=== PATIENT | male | born 1955 | race Caucasian/White ===

== ENCOUNTER 2024-05-06 07:13 | Day surgery (SDC) | payer BC ==
[2024-05-05 10:15] LABS: Absolute Basophils 0.1 K/uL (0-0.5); Absolute Eosinophils 0.2 K/uL (0-0.5); Absolute Lymphocytes (CBC) 1.6 K/uL (0.7-4.9); Absolute Neutrophil 5.8 K/uL (1.8-8.0); Basophils % 0.7 % (0-1.3); Eosinophils % 2.4 % (0-4.4); Hematocrit 44.1 % (39.6-49.0); Lymphocytes % 18.5 % (15.3-44.8); MCH 32.6 pg (27.0-35.0); MCV 95.6 fL (80-100); Monocytes % 11.4 % (3.3-12.3); Nucleated Red Blood Cells % 0.1 % (0-0); Platelets 204 thou/uL (152-406); RBC Red Blood Cell Count 4.61 M/uL (4.33-5.43); Red Cell Distribution Width 13.4 % (12.1-15.2)
[2024-05-05 10:26] LABS: PT Prothrombin Time 10.8 SECONDS (10-13.0); PTT, Activated Partial Thromb 31.7 SECONDS (27.2-37.4); Protime INR 0.94
[2024-05-05 10:35] LABS: Anion Gap 11.3 mEq/L (5.0-15.0); Potassium 4.3 mEq/L (3.5-5.1)
--- NOTE | 2024-05-05 12:32 | RAD REPORT ---
EXAMINATION: TWO VIEW CHEST XR CLINICAL INDICATION: Male, 69 years old. 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 Hypertension TECHNIQUE: 2 view radiographs of the chest were performed. COMPARISON: No prior exam. FINDINGS: The lungs are well inflated and clear. No pneumothorax or sizable effusion. The heart is normal in si ze. Mediastinal contours are unremarkable. IMPRESSION: No acute or significant abnormalities.
[2024-05-06] MEDS ORDERED: LIDOCAINE 1% 20 ML MDV ONE (07:20)
[2024-05-06] MEDS ORDERED: NITROGLYCERIN/D5W 50 MG/250 ML BTL IV ONE (07:20)
[2024-05-06] MEDS ORDERED: HEPA 1000U/500MLS 2,000 UNIT/1,000 ML BAG IV ONE (07:20)
[2024-05-06] MEDS ORDERED: NA CHLORIDE 0.9% 500 ML ONE (07:21)
[2024-05-06] MEDS ORDERED: ATROPINE SULF 1 MG/10 ML SYR IV ONE (07:43)
[2024-05-06] MEDS ORDERED: MIDAZOLAM HCL 2 MG/2 ML INJ ONE (07:43)
[2024-05-06] MEDS ORDERED: FENTANYL CITR 100 MCG/2 ML ONE (07:44)
[2024-05-06] MEDS ORDERED: CLOPIDOGREL 75 MG TABLET ONE (07:44)
[2024-05-06] MEDS ORDERED: HEPARIN 5000 UNIT/ML 1 ML VIAL ONE (07:44)
[2024-05-06] MEDS ORDERED: ASPIRIN 325 MG TAB ONE (07:44)
[2024-05-06] MEDS ORDERED: TICAGRELOR 90 MG TABLET PO ONE ×2 (07:44→09:09)
[2024-05-06] MEDS ORDERED: HEPARIN 10,000 UNIT/10 ML VIAL IV ONE (08:39)
[2024-05-06 10:24] VITALS: O2SAT 100
[2024-05-06 13:06] VITALS: BP 129/67
--- NOTE | 2024-05-06 20:59 | OP ---
Date of Procedure: 05/06/2024 Surgeon: Nico Stevenson Procedures Performed: 1. Peripheral angiogram. 2. NUCLEAR PLANT TECHNICAL ADVISOR of the right SFA with drug-coated balloon. Indication For Procedure: Claudications, abnormal PAULA and CTA. Complications: None. Estimated Blood Loss: Less than 50 cc. Access: Left common femoral artery, closed by Mynx. Description Of Procedure: After risks, and benefits, and alternatives were explained to the patient, patient agreed to proceed with procedure and signed informed consent. The patient was brought back to the chemical processing laborer, prepped and draped in sterile fashion. Time-out was performed. Sedation was admini stered. Next, in the left common femoral artery, under ultrasound-guided micropuncture technique, ac cess was obtained. A 5-Fijian sheath was introduced without any difficulty. The Omni Flush catheter was advanced to the lower abdominal aorta for lower abdominal aortogram, that was later exchanged fo r an HARPAL catheter for the right lower extremity angiogram. This was later exchanged for a 6-Fijian D estination sheath. Heparin was administered. ACT was therapeutic. The wire was passed across the l esion. We pre-dilated the right SFA disease with the regular balloon 4.0 mm in size and that was lat er followed by a drug-coated balloon 6 mm for 2 minutes. Repeat angiogram shows MENDY-3 flow. Wire w as removed. Destination sheath was pulled back to the left SOLDERING MACHINE OPERATOR HELPER and peripheral angiogram of the left leg was done using the Destination sheath. At the end of procedure, Destination sheath was removed a nd access was closed with a Mynx. The patient was moved back to Recovery in stable condition. Findings: 1. Lower abdominal aorta is patent. 2. Right common iliac artery/internal iliac artery; diffuse 40% calcified disease. 3. Right SFA; proximal mild luminal irregularities with mid 70% disease, status post NUCLEAR PLANT TECHNICAL ADVISOR. 4. Right anterior tibial occluded. 5. Right peroneal artery with a proximal 60% to 70% disease, then mild luminal irregularities. 6. Right posterior tibial artery; mild luminal irregularities. 7. Two vessel runoff on the right side. 8. Left common iliac artery/internal iliac artery; mild luminal irregularities. 9. Left SFA; proximal calcified 50% disease, then mid 70% to 80% disease, heavy calcified. 10. Left anterior tibial; diffuse, severe disease. 11. Left peroneal/posterior tibial; diffuse mild luminal irregularities. Assessment And Plan: 1. Significant right SFA disease, status post NUCLEAR PLANT TECHNICAL ADVISOR with the drug-coated balloon. 2. Significant left SFA disease, staged NUCLEAR PLANT TECHNICAL ADVISOR to be done in 4-6 weeks. Plan will be: 1. Aspirin 81 mg daily for life. 2. Plavix 75 mg daily for 12 months. BRENNAN/DEA Voice ID: [id number] Report ID: [id number]
--- NOTE | 2024-05-07 12:40 | EKG ---
Test Date: 2024-05-05 Test Time: 08:32:00 Pharmacology Professor: ANTOINETTE MEASUREMENT RESULTS: Intervals: Rate: 73 VA: QRSD: 74 QT: 404 QTc: 445 [place]: P: 69 VA: QRS: 80 T: 173 INTERPRETIVE STATEMENTS: Atrial flutter with 3:1 AV conduction Septal infarct, age undetermined ST & T wave abnormality, consider inferior ischemia Abnormal ECG No previous ECG available for comparison Electronically Signed On 05-07-24 12:29:20 CDT by Nico Stevenson
== END 2024-05-06 13:10 | disposition home or self-care (01) ==
LOC: CCL 07:13
PROVIDERS: ATTEND Internal Medicine Interventional Cardiology
PROC: B41D1ZZ Fluoroscopy of Aorta and Bilateral Lower Extremity Arteries using Low Osmolar Contrast (ICD-10-PCS; principal; 2024-05-06)
PROC: 047K3Z1 Dilation of Right Femoral Artery using Drug-Coated Balloon, Percutaneous Approach (ICD-10-PCS; 2024-05-06)
DX: I70.223 Atherosclerosis of native arteries of extremities with rest pain, bilateral legs (principal); I12.9 Hypertensive chronic kidney disease with stage 1 through stage 4 chronic kidney disease, or unspecified chronic kidney disease; N18.30 Chronic kidney disease, stage 3 unspecified; E78.2 Mixed hyperlipidemia; F17.210 Nicotine dependence, cigarettes, uncomplicated; Z79.82 Long term (current) use of aspirin; Z79.899 Other long term (current) drug therapy; Z88.5 Allergy status to narcotic agent; Z88.8 Allergy status to other drugs, medicaments and biological substances; Z82.49 Family history of ischemic heart disease and other diseases of the circulatory system
CPT/HCPCS: 36415; 37224; 71046; 75630; 75710; 76937; 80048; 85025; 85347; 85610; 85730; 93005; 99152; C1760; C1769; C1893; J0461; J1644; J2003; J2250; J3010; J7040

== ENCOUNTER 2024-06-17 07:36 | Day surgery (SDC) | payer BC ==
[2024-06-05 13:11] LABS: Absolute Basophils 0.1 K/uL (0-0.5); Absolute Eosinophils 0.6 K/uL (0-0.5); Absolute Lymphocytes (CBC) 2.4 K/uL (0.7-4.9); Absolute Neutrophil 4.7 K/uL (1.8-8.0); Eosinophils % 6.6 % (0-4.4); Hematocrit 41.9 % (39.6-49.0); Hemoglobin 14.3 g/dL (13.6-17.9); MCH 32.7 pg (27.0-35.0); MCHC 34.1 g/dL (32.0-36.0); MCV 95.9 fL (80-100); MPV 8.3 fL (7.6-11.3); Monocytes % 11.4 % (3.3-12.3); Platelets 227 thou/uL (152-406); RBC Red Blood Cell Count 4.37 M/uL (4.33-5.43); Red Cell Distribution Width 13.1 % (12.1-15.2)
[2024-06-05 13:18] LABS: PT Prothrombin Time 10.7 SECONDS (10-13.0); PTT, Activated Partial Thromb 32.8 SECONDS (27.2-37.4); Protime INR 0.94
[2024-06-05 13:52] LABS: Anion Gap 8.3 mEq/L (5.0-15.0); Potassium 4.3 mEq/L (3.5-5.1)
--- NOTE | 2024-06-11 13:01 | EKG ---
Test Date: 2024-06-05 Test Time: 12:46:29 Mechanical Design Drafter: NÉSTOR MEASUREMENT RESULTS: Intervals: Rate: 62 NM: 168 QRSD: 80 QT: 376 QTc: 381 [place]: P: 77 NM: 168 QRS: 78 T: 67 INTERPRETIVE STATEMENTS: Normal sinus rhythm Normal ECG Compared to ECG 05/05/2024 08:32:00 Atrial flutter no longer present Myocardial infarct finding no longer present ST (T wave) deviation no longer present Possible ischemia no longer present Electronically Signed On 06-11-24 12:44:48 CDT by Nico Stevenson
[2024-06-17] MEDS ORDERED: NA CHLORIDE 0.9% 500 ML ONE (07:43)
[2024-06-17] MEDS ORDERED: HEPA 1000U/500MLS 2,000 UNIT/1,000 ML BAG IV ONE (08:26)
[2024-06-17] MEDS ORDERED: LIDOCAINE 1% 20 ML MDV ONE (08:27)
[2024-06-17] MEDS ORDERED: MIDAZOLAM HCL 2 MG/2 ML INJ ONE (08:41)
[2024-06-17] MEDS ORDERED: ATROPINE SULF 1 MG/10 ML SYR IV ONE (08:42)
[2024-06-17] MEDS ORDERED: FENTANYL CITR 100 MCG/2 ML ONE (08:42)
[2024-06-17 13:14] VITALS: BP 136/60; O2SAT 99
--- NOTE | 2024-06-17 23:08 | OP ---
Date of Procedure: 06/17/2024 Surgeon: Nico Stevenson Procedure Performed: Percutaneous transluminal angioplasty of left superficial femoral artery stenos is. Indication For Procedure: Claudications, abnormal PAULA with abnormal peripheral angiogram. Complications: None. Access: Right common femoral artery, closed by Mynx. Estimated Blood Loss: Less than 50 cc. Sedation Time: 30 minutes with 2 of Versed and 50 of fentanyl. Description Of Procedure: After risks, benefits, and alternatives were explained to the patient, pat ient agreed to proceed with procedure and signed informed consent. The patient was brought back to [facility] medical lab technician, prepped and draped in sterile fashion. Time-out was performed. Sedation was administer ed. Next right common femoral artery access was obtained using ultrasound-guided micropuncture techn ique. We advanced the Omni Flush catheters. We crossed into the left SFA with Glidewire Advantage t hat was later exchanged with the 6-Belarusian destination sheath. We predilated the lesions with a regul ar 4.0 mm balloon that was followed by drug-coated balloon 6 mm in size for 2 minutes. Repeat angiog josep shows MENDY-3 flow, so at the end of procedure, wire was removed. Sheath was removed and Mynx was applied. Hemostasis was achieved and patient was moved back to recovery in stable condition. Findings: 1. Left common femoral artery patent. 2. Left SFA artery with proximal 30% to 40% disease followed by a mid 80% disease, status post ART EDUCATION PROFESSOR wi th drug-coated balloon. Stenosis is down to less than 10% with very minimal dissections. 3. Left posterior tibial and peroneal arteries are patent. 4. Left anterior tibial with proximal diffuse 80% disease and mild luminal irregularities. 5. Three vessel runoff in the left leg. Assessment And Plan: Significant left superficial femoral artery disease, status post percutaneous t ransluminal angioplasty with a drug-coated balloon. Plan is to: 1. Continue aspirin 81 mg daily for life. 2. Continue Plavix 75 mg daily for 12 months. AMIN/MODL Voice ID: [id number] Report ID: [id number]
== END 2024-06-17 13:34 | disposition home or self-care (01) ==
LOC: PRE 07:36 → CCL 13:34
PROVIDERS: ADMIT Internal Medicine; ATTEND Internal Medicine Interventional Cardiology
PROC: 047L3Z1 Dilation of Left Femoral Artery using Drug-Coated Balloon, Percutaneous Approach (ICD-10-PCS; principal; 2024-06-17)
DX: I70.223 Atherosclerosis of native arteries of extremities with rest pain, bilateral legs (principal); I12.9 Hypertensive chronic kidney disease with stage 1 through stage 4 chronic kidney disease, or unspecified chronic kidney disease; N18.30 Chronic kidney disease, stage 3 unspecified; E78.2 Mixed hyperlipidemia; F17.210 Nicotine dependence, cigarettes, uncomplicated; Z79.02 Long term (current) use of antithrombotics/antiplatelets; Z79.82 Long term (current) use of aspirin; Z79.899 Other long term (current) drug therapy; Z88.5 Allergy status to narcotic agent; Z82.49 Family history of ischemic heart disease and other diseases of the circulatory system
CPT/HCPCS: 36415; 37224; 75710; 76937; 80048; 85025; 85610; 85730; 93005; 99152; 99153; C1760; C1769; C1893; J0461; J2003; J2250; J3010; J7040; Q9966